=== PATIENT | male | born 1995 ===

== ENCOUNTER 2025-02-19 08:40 | Day surgery (SDC) | payer OTHER ==
[2025-02-19] MEDS ORDERED: MIDAZOLAM HCL 2 MG/2 ML VIAL IV ONE (15:00)
[2025-02-19] MEDS ORDERED: ONDANSETRON HCL 2 MG/ML VIAL IV ONE (15:00)
[2025-02-19] MEDS ORDERED: fentaNYL CITRATE 50 MCG/ML AMPUL IV PUSH ONE (15:00)
[2025-02-19] MEDS ORDERED: DIPHENHYDRAMINE HCL 50 MG/ML VIAL 1ML IV ONE (15:00)
== END 2025-02-19 16:25 | disposition home or self-care (01) ==
LOC: AMB-ENDOS 08:40
PROVIDERS: ATTEND Colon & Rectal Surgery
DX: K62.5 Hemorrhage of anus and rectum (principal); K63.5 Polyp of colon; K62.1 Rectal polyp

== ENCOUNTER 2025-02-23 11:13 | Outpatient (CLI) | payer OTHER | END 2025-02-23 11:16 | disposition home or self-care (01) | LOC: TOM 11:13 | PROVIDERS: ATTEND Neuromusculoskeletal Medicine & OMM | DX: I67.1 Cerebral aneurysm, nonruptured (principal); Q28.2 Arteriovenous malformation of cerebral vessels; R20.2 Paresthesia of skin; R51.9 Headache, unspecified | CPT/HCPCS: 70553 ==